=== PATIENT | female | born 1975 | race Caucasian/White ===

== ENCOUNTER 2018-11-29 16:41 | Emergency (ER) | payer SELFPAY ==
[~2018-11-29] VITALS: Ht 167.6 cm; Wt 67.0 kg
[2018-11-29 16:47] VITALS: BP 134/88
== END 2018-11-29 21:52 | disposition left against medical advice (07) ==
LOC: ER 17:53
DX: R05 Cough (principal); R09.81 Nasal congestion; Z53.21 Procedure and treatment not carried out due to patient leaving prior to being seen by health care provider